=== PATIENT | male | born 1955 | race Hispanic/Latino ===

== ENCOUNTER 2016-11-29 15:39 | Inpatient (IN) | payer OTHER ==
[2016-11-29] MEDS ORDERED: SODIUM CHLORIDE 0.9% 1000ML 1,000 ML ONE (16:05)
[2016-11-29] MEDS ORDERED: ALBUTEROL SULFATE 2.5 MG/3 ML VIAL NEB PRN (16:18)
[2016-11-29] MEDS ORDERED: SODIUM CHLORIDE 0.9% 1000ML 1,000 ML IVS PRN (16:18)
[2016-11-29] MEDS ORDERED: MORPHINE SULFATE INJ 10 MG/ML VIAL IV PRN (16:18)
[2016-11-29] MEDS ORDERED: ONDANSETRON INJ 4 MG/2 ML VIAL IV PRN (16:18)
[2016-11-29] MEDS ORDERED: ACETAMINOPHEN SUPPOSITORY 650 MG PR PRN (16:18)
[2016-11-29] MEDS ORDERED: SCOPOLAMINE PATCH 1.5MG 1 EA TD SCH (16:30)
[2016-11-29 19:29] VITALS: O2SAT 93
[2016-11-29 22:54] VITALS: BP 138/87; TEMP 97.6
--- NOTE | 2016-11-30 16:37 | HP ---
SUPERVISING PHYSICIAN: Mc Conteh M.D. CHIEF COMPLAINT: Colon cancer. HISTORY OF PRESENT ILLNESS: This is a 61 year-old male patient who lives in [place], who was diagnosed with colon cancer. His family lives in [place] and they have requested that he be admitted to the [facility] for [facility] due to worsening in his mental status as well as his condition due to the colon cancer. PAST MEDICAL HISTORY: 1. Hypertension. 2. Diabetes mellitus type 2. 3. Left [id number] amputation. 4. Hyperlipidemia. OUTPATIENT MEDICATIONS: Unknown. ALLERGIES: NO KNOWN DRUG ALLERGIES. CODE STATUS: Do not resuscitate and will be placed on Hospice care. SOCIAL HISTORY: He lives in [place]. He is being moved to [place] due to his family living here. REVIEW OF SYSTEMS: Unable to obtain due to the patient's condition. PHYSICAL EXAMINATION: VITAL SIGNS: Initially temperature is 96.6, pulse rate 93, blood pressure 122/ 75, respiratory rate 20, O2 sat is 93% on 4 liters nasal cannula. His exam is deferred. LABORATORY: No labs and films to report. ASSESSMENT: 1. Colon cancer. 2. Metastatic cancer to the brain, lungs, bone and liver. PLAN: We will admit the patient to [facility]. Order will be per [facility] routine hospice orders. We will followup as needed. Dr. Conteh is the collaborating physician and available for consultation. #[id number] [facility]
--- NOTE | 2016-11-30 21:00 | DS ---
SUPERVISING PHYSICIAN: Mc Conteh M.D. DISCHARGE DIAGNOSIS: 1. Colon cancer with metastasis to brain, lung, bone and liver. Time of is 8:55 AM. 2. due to metastatic colon cancer. HISTORY OF PRESENT ILLNESS: This is a 61 year-old male patient who was admitted to [facility] for [facility] care on 11/29/16. [facility] initiated their routine hospice orders. The patient at 8:[address] Conteh is the collaborating physician available for consultation. #[id number] [facility]
== END 2016-11-30 08:55 | disposition expired | DRG 375 ==
LOC: MS 15:39
PROVIDERS: ADMIT Nurse Practitioner Acute Care; ATTEND Nurse Practitioner Acute Care
DX: C18.9 Malignant neoplasm of colon, unspecified (principal); C79.31 Secondary malignant neoplasm of brain; C79.51 Secondary malignant neoplasm of bone; C78.7 Secondary malignant neoplasm of liver and intrahepatic bile duct; C78.00 Secondary malignant neoplasm of unspecified lung; I10 Essential (primary) hypertension; E11.9 Type 2 diabetes mellitus without complications; E78.5 Hyperlipidemia, unspecified; Z51.5 Encounter for palliative care; Z66 Do not resuscitate; Z95.828 Presence of other vascular implants and grafts; Z89.612 Acquired absence of left leg above knee; Z79.891 Long term (current) use of opiate analgesic; Z79.52 Long term (current) use of systemic steroids; Z79.899 Other long term (current) drug therapy